=== PATIENT | female | born 1960 | race Caucasian/White ===

== ENCOUNTER → 2017-02-25 | Outpatient (CLI) | payer OTHER, MEDICAID | LOC: BRMIMAGING 13:30 | PROVIDERS: ATTEND Family Medicine | DX: Z13.820 Encounter for screening for osteoporosis (principal); M85.80 Other specified disorders of bone density and structure, unspecified site; E03.9 Hypothyroidism, unspecified; Z78.0 Asymptomatic menopausal state; Z79.52 Long term (current) use of systemic steroids ==

== ENCOUNTER → 2017-05-23 | Outpatient (CLI) | payer OTHER, MEDICAID ==
--- NOTE | 2017-05-24 13:38 | CPEEG ---
[f rep st] ELECTROENCEPHALOGRAM DATE OF STUDY: 05/23/2017 INTERPRETATION: Normal EEG during wakefulness and drowsiness. There were no potentially epileptogen ic abnormalities present during the recording. REPORT: This EEG contains 10 Hz alpha activity to the posterior head regions. There was no abnormal activation at rest, during photic stimulation or hyperventilation. The patient became drowsy during the study. There was no abnormal activation during drowsiness or during times of arousal. /[id number]/MODL
== END ==
LOC: FCPNEURO 14:44
PROVIDERS: ATTEND Psychiatry & Neurology Neurology
DX: R20.2 Paresthesia of skin (principal)

== ENCOUNTER → 2017-06-15 | Outpatient (CLI) | payer OTHER, MEDICAID ==
[~2017-06-15] MED LIST: GADOBUTROL 10 ML VIAL IVP ONE
== END ==
LOC: FIMAGING 14:46
PROVIDERS: ATTEND Psychiatry & Neurology Neurology
DX: R93.0 Abnormal findings on diagnostic imaging of skull and head, not elsewhere classified (principal); R20.2 Paresthesia of skin
CPT/HCPCS: 70553; A9585

== ENCOUNTER → 2018-07-21 | Outpatient (CLI) | payer OTHER, MEDICAID | LOC: CIMAGING 14:37 | PROVIDERS: ATTEND Internal Medicine | DX: R09.81 Nasal congestion (principal); R51 Headache | CPT/HCPCS: 70486-PO ==